=== PATIENT | male | born 1985 | race Caucasian/White ===

== ENCOUNTER 2019-09-17 15:32 | Emergency (ER) | payer SELFPAY ==
[2019-09-17 15:33] VITALS: BP 138/78; PULSE 103; RESP 18; TEMP 36.8; O2SAT 98; BMI 26.4
--- NOTE | 2019-09-17 15:59 | NURSING ---
CALLED FE, NO [facility]QU[facility] AVAILABLE CALLED [facility], NOT ABLE TO TAKE PATIENT CALLED YOVANI BENNETT, ETA IS ABOUT 2030
--- NOTE | 2019-09-17 16:08 | ED.DCSUM_ITS ---
History of Present Illness Chief Complaint: Substance Abuse Informant: Patient, Planning Consultant, - - Police Onset: Today Narrative: Patient is a 34-year-old male with history of heroin and methamphetamine abuse presenting with acute intoxication. Patient states he was at known drug house and drank something. He is not sure what was in it but thinks it might have been meth. He then went to his girlfriend's house and 911 was called because he was acting strangely. Patient was very agitated, hyperactive but also not speaking. Please state he was also profusely sweating. EMS was called and patient was given 5 of IM Haldol as well as 2 of Narcan per the protocol. Joseluis basurto very quickly calm down and was much more cooperative. Patient is now stating that he wants to go home. He admits to using an unknown drug today. He denies any physical complaints. Past Medical History - Allergies and Home Meds Allergies/Adverse Reactions: Allergies No Known Allergies Allergy (Verified 09/01/16 18:59) Primary Care Physician: Care Physician,No Primary [Primary Care Provider] - Past Medical History: - - Illicit drug use Lives: With Family Smoking Status: Current some day smoker Review of Systems All systems negative except as indicated - Patient denies any physical complaints Psych: Reports: - - Illicit drug use Physical Exam Vital Signs/Narrative: Vital Signs Temp Pulse Resp BP Pulse Ox 09/17/19 15:33 98.3 F 103 H 18 138/78 H 98 Inital Vital Signs reviewed: Yes General: Well nourished, Well developed, No Acute Distress Head: Normocephalic, Atraumatic Eyes: Perrl, EOMI ENT: Moist mucous membranes, No rhinorrhea Neck: Supple, Nontender Cardiovascular: Regular rate, Regular rhythm, No murmurs Respiratory: No distress, CTA bilaterally, Chest nontender Abdomen: Soft, Nontender, Nondistended Extremities: Nontender, No edema, - - No obvious deformity or signs of injury Skin: Normal color, No rash, No Trauma Neurological: Alert, Oriented x3, Cranial nerves II-XII grossly intact, Normal Strength, Normal Sensation, - - Focal neurologic deficits Psychological: Normal affect, Agitated, - - Patient pacing around the room but is directable Diagnostic/Tx/Re-eval - Medical Decision Making Patient is evaluated for acute agitation likely associated with illicit drug use. Patient admits to drinking drug earlier today. Patient did receive IM Haldol and Narcan prior to arrival. Patient wants to leave. He is alert and oriented x3 and does appear to have capacity and understanding of his situation. Patient is counseled that he can be discharged home but does need to have a sober ride. Patient's ride arrived and patient leaves with the ride before he can be discharged/exit counseled or the right can be evaluated and the patient condition can be discussed. Patient eloped from the emergency room. Patient does not have any focal neurologic deficits. I do not think head CT or other lab work is indicated at this time. In addition patient is refusing at this time I do think he has the right to refuse. ED Disposition - Plan for ED Patient: Disposition: Home or Assisted Living Diagnosis: Drug abuse Instructions: Drug Abuse Referrals: Care Physician,No Primary [Primary Care Provider] -
--- NOTE | 2019-09-17 16:21 | ED.RN ---
DR MCCANN INFORMED PATIENT NEEDS TO HAVE A SOBER RIDE HOME BEFORE HE CAN LEAVE. PT'S RIDE SHOWED UP AND RN TOLD PATIENT TO WAIT FOR PAPERWORK TO LEAVE. RN TO DR. MCCANN TO INFORM OF PATIENT'S RIDE IS HERE. DR. MCCANN AND RN RETURN TO ROOM AND PATIENT HAS ELOPED. NO IV.
== END 2019-09-17 16:26 | disposition home or self-care (01) ==
LOC: ED 15:54
PROVIDERS: Emergency Provider Emergency Medicine
DX: F15.129 Other stimulant abuse with intoxication, unspecified (principal); F11.129 Opioid abuse with intoxication, unspecified; F17.200 Nicotine dependence, unspecified, uncomplicated
CPT/HCPCS: 99283

== ENCOUNTER 2019-10-19 02:21 | Emergency (ER) | payer SELFPAY ==
[2019-10-19 02:22] VITALS: PULSE 115; RESP 5; O2SAT 78
[2019-10-19 02:23] VITALS: BP 118/58; PULSE 146; RESP 25; TEMP 37.8; O2SAT 92; BMI 22.3
[2019-10-19 02:25] VITALS: PULSE 114; RESP 5; O2SAT 100
--- NOTE | 2019-10-19 02:34 | CT_ITS ---
HISTORY: SUBSTANCE ABUSE WITH HEAD INJURY, LACERATION, FALL EXAMINATION: CT Spine Cervical W/O Contrast Injection TECHNIQUE: Helically acquired images were obtained of the cervical spine. 2D reformatted images were reviewed. A radiation dose optimization technique was used for this scan. IV Contrast dosage and agent: None. COMPARISON: None FINDINGS: The cervical vertebra show normal height and alignment. No fracture or acute osseous abnormality. Intact dens and craniocervical junction. Cervical disc space heights are preserved. C4-5 and C5-6 mild anterior endplate spurring. The posterior elements appear intact. No spondylolisthesis. Neuroforamina are patent. No bony encroachment of the central spinal canal. The paravertebral soft tissues are unremarkable. CT/Spine Cervical without Contras IMPRESSION: 1. No fracture or acute osseous abnormality. Normal cervical vertebral alignment. 2. Minor degenerative change. Individualized dose optimization techniques were used for this CT. at 0330 Reported and signed by: Danial Thompson MD Electronically Signed: Danial Thompson, at 3:29 EST Tel , Service support ,
--- NOTE | 2019-10-19 02:34 | EKG12_ITS ---
Test Reason : Blood Pressure : / mmHG Vent. Rate : 095 BPM Atrial Rate : 095 BPM P-R Int : 154 ms QRS Dur : 102 ms QT Int : 374 ms P-R-T Axes : 065 -23 044 degrees QTc Int : 469 ms Normal sinus rhythm Incomplete right bundle branch block Borderline ECG Confirmed by RODNEY PALOMARES, SKY ([id number]), editor index CRISTINA ALEJANDRE ([id number]) on 10/21/2019 11:06:39 AM Referred By: KATELYN Confirmed By:SKY STEVENS MD
--- NOTE | 2019-10-19 02:34 | CT_ITS ---
HISTORY: SUBSTANCE ABUSE WITH HEAD INJURY, LACERATION, FALL EXAMINATION: CT Head or Brain W/O Contrast Injection TECHNIQUE: Multiple axial images were obtained of the head without intravenous contrast. A radiation dose optimization technique was used for this scan. IV Contrast dosage and agent: None. COMPARISON: None FINDINGS: Normal ventricles and normal sosa-white matter differentiation. No intracranial mass, hemorrhage, or acute parenchymal abnormality. Posterior fossa structures are unremarkable. No suspicious extra-axial fluid collection. The calvarium appears intact. As visualized, the mastoids are clear. 2.3 cm circumscribed retention cyst within the anterior floor of the left maxillary sinus. CT/Brain/Head without Contrast IMPRESSION: 1. Normal CT brain without contrast. 2. Left maxillary sinus 2.3 cm benign retention cyst. Individualized dose optimization techniques were used for this CT. at 0325 Reported and signed by: Danial Thompson MD Electronically Signed: Danial Thompson, at 3:24 EST Tel , Service support ,
--- NOTE | 2019-10-19 02:34 | RAD_ITS ---
HISTORY: UNRESPONSIVESUBSTANCE ABUSE EXAMINATION/TECHNIQUE: XR Chest 1 View: Portable COMPARISON: None FINDINGS: Cardiac telemetry leads in place. Poor inspiration with low lung volumes and bibasilar infiltrates or atelectasis. Normal heart size. No overt vascular congestion. No significant pleural effusion. No pneumothorax. The bony thorax appears intact. RAD/Chest 1 View (Portable) IMPRESSION: Poor inspiration with bibasilar infiltrates or atelectasis. at 0334 Reported and signed by: Danial Thompson MD Electronically Signed: Danial Thompson, at 3:33 EST Tel , Service support ,
--- NOTE | 2019-10-19 02:35 | ED.VIS.GEN ---
History of Present Illness Chief Complaint: Substance Abuse Narrative: Patient is a 34-year-old male who presents with abnormal behavior. He was called by a bystander due to abnormal behavior. The caller 01/01/2001 reported that the patient has been using bath salts. He was combative on the porch for police. He had a laceration to his left scalp. In route for EMS he was intermittently agitated and combative and somnolent. Further history is unable to be obtained due to the patient's acute agitation. Past Medical History - Allergies and Home Meds Allergies/Adverse Reactions: Allergies No Known Allergies Allergy (Verified 09/01/16 18:59) Primary Care Physician: Care Physician,No Primary [Primary Care Provider] - Past Medical History: - - Unable to obtain Smoking Status: Current some day smoker Review of Systems ROS: Unable to Obtain Physical Exam Vital Signs/Narrative: Vital Signs Temp Pulse Resp BP Pulse Ox 10/19/19 02:23 100.1 F H 146 H 25 H 118/58 L 92 Inital Vital Signs reviewed: Yes General: Acute Distress Head: Normocephalic, - - 3 cm left parietal scalp laceration Eyes: Perrl ENT: Moist mucous membranes Neck: Supple Cardiovascular: - - Heart is regular tachycardia without murmur, gallop, rub Respiratory: - - Tachypnea but lungs are clear Abdomen: Soft, Nontender, Nondistended Extremities: Nontender, - - No apparent pain with passive range of motion Skin: Normal color Neurological: - - Agitated answers yes or no to some questions unable to provide any further history Psychological: Agitated Diagnostic/Tx/Re-eval Impressions Brain CT 10/19/19 02:34 IMPRESSION: 1. Normal CT brain without contrast. 2. Left maxillary sinus 2.3 cm benign retention cyst. Individualized dose optimization techniques were used for this CT. at 0325 Reported and signed by: Danial Thompson MD Electronically Signed: Danial Thompson, at 3:24 EST Tel , Service support , Cervical Spine CT 10/19/19 02:34 IMPRESSION: 1. No fracture or acute osseous abnormality. Normal cervical vertebral alignment. 2. Minor degenerative change. Individualized dose optimization techniques were used for this CT. at 0330 Reported and signed by: Danial Thompson MD Electronically Signed: Danial Thompson, at 3:29 EST Tel , Service support , Chest X-Ray 10/19/19 02:34 IMPRESSION: Poor inspiration with bibasilar infiltrates or atelectasis. at 0334 Reported and signed by: Danial Thompson MD Electronically Signed: Danial Thompson, at 3:33 EST Tel , Service support , 10/19/19 02:34 Brain/Head without Contrast [CT] Stat Chest 1 View (Portable) [RAD] Stat Spine Cervical without Contras [CT] Stat Laboratory Results 10/19/19 10/19/19 10/19/19 02:45 02:45 02:45 WBC 7.7 RBC 4.26 L Hgb 12.7 L Hct 38.8 L MCV 91.1 MCH 29.8 MCHC 32.7 RDW Std Deviation 42.5 RDW Coeff of Serafin 12.8 Plt Count 291 MPV 9.1 Immature Gran % (Auto) 0.400 Neut % (Auto) 62.7 Lymph % (Auto) 23.3 [place] % (Auto) 9.2 Eos % (Auto) 3.9 Baso % (Auto) 0.5 Absolute Neuts (auto) 4.8 Absolute Lymphs (auto) 1.79 Nucleated RBC % 0 Sodium 140 Potassium 3.9 Chloride 106 Carbon Dioxide 24.0 Anion Gap 10 BUN 19 H Creatinine 1.19 Estim Creat Clear Calc 91.48 Est GFR (MDRD) Af Amer 91 Est GFR (MDRD) Non-Af 75 BUN/Creatinine Ratio 16.0 Glucose 88 Calcium 8.6 Total Bilirubin 0.40 Direct Bilirubin 0.15 AST 32 ALT 40 Alkaline Phosphatase 118 H Total Creatine Kinase 144 Total Protein 7.5 Albumin 3.7 Globulin 3.8 Urine Opiates Screen Urine Methadone Screen Ur Barbiturates Screen Ur Phencyclidine Scrn Ur Amphetamines Screen U Methamphetamin-MDMA U Benzodiazepines Scrn Urine Cocaine Screen U Cannabinoids Screen Ur Drug Screen Comment Ethyl Alcohol 10/19/19 10/19/19 02:45 02:50 WBC RBC Hgb Hct MCV MCH MCHC RDW Std Deviation RDW Coeff of Serafin Plt Count MPV Immature Gran % (Auto) Neut % (Auto) Lymph % (Auto) [place] % (Auto) Eos % (Auto) Baso % (Auto) Absolute Neuts (auto) Absolute Lymphs (auto) Nucleated RBC % Sodium Potassium Chloride Carbon Dioxide Anion Gap BUN Creatinine Estim Creat Clear Calc Est GFR (MDRD) Af Amer Est GFR (MDRD) Non-Af BUN/Creatinine Ratio Glucose Calcium Total Bilirubin Direct Bilirubin AST ALT Alkaline Phosphatase Total Creatine Kinase Total Protein Albumin Globulin Urine Opiates Screen NEGATIVE Urine Methadone Screen NEGATIVE Ur Barbiturates Screen NEGATIVE Ur Phencyclidine Scrn NEGATIVE Ur Amphetamines Screen POSITIVE H U Methamphetamin-MDMA NEGATIVE U Benzodiazepines Scrn NEGATIVE Urine Cocaine Screen NEGATIVE U Cannabinoids Screen POSITIVE H Ur Drug Screen Comment Ethyl Alcohol 6.0 - Medical Decision Making Patient presented agitated. He responded to his name. When asked if he knew where he was he shook his head and said no. He does not appear to have any focal or lateralizing deficits on exam. Police reported they were told the patient had used bath salts. Patient was given IV Ativan. He did become more somnolent and had an oxygen desaturation and was placed on a nonrebreather. Laceration was anesthetized with 1% lidocaine, cleansed with sterile saline, closed with 3 jamel. Laboratory evaluation as above notable for amphetamines and cannabinoids on drug screen. Patient has been monitored for several hours. On reevaluation he is more alert and able to answer questions appropriately but still requires repeated verbal stimulation answer questions. He does not recall what happened but does admit to bath salt use. He is oriented x3 he is able to provide his name age the month and where he is. However he is still somnolent and I do feel he requires further observation until he can stay awake and ambulate on his own. Patient will be signed out the oncoming physician but once more alert I do believe can be safely discharged home. ED Disposition - Plan for ED Patient: Disposition: Home or Assisted Living Diagnosis: Stimulant abuse Instructions: Drug Abuse Referrals: Care Physician,No Primary [Primary Care Provider] -
[2019-10-19] MEDS: LORazepam 2 MG/ML Syringe IV (02:37)
[2019-10-19 02:54] LABS: Absolute Lymphocyte Count 1.79 X10^3/uL (0.83-4.51); Absolute Neutrophil Count 4.8 X10^3/uL (2.0-7.7); Basophil# 0.04 X10^3/uL; Basophil% 0.5 % (0-1); Eosinophils% 3.9 % (0-5); Hematocrit 38.8 % (40-54); Hemoglobin 12.7 g/dL (13.0-16.5); Lymphocyte # 1.79 X10^3/ul (4.0); Lymphocyte % 23.3 % (19-41); Mean Corp Hgb Conc 32.7 g/dL (32-36); Mean Corpuscular Hgb 29.8 pg (27.0-32.0); Mean Corpuscular Volume 91.1 fL (80-94); Mean Platelet Vol. 9.1 fl (6.2-12.0); Monocyte# 0.71 X10^3/uL; Monocyte% 9.2 % (0-10); NRBC Flagged by Analyzer 0 % (0-5); Neutrophil # 4.82 X10^3/uL (2.7-7.7); Neutrophil % 62.7 % (47-70); Platelet Count 291 K/mm3 (150-450); RBC Distribution Width CV 12.8 % (11.6-14.6); RBC Distribution Width SD 42.5 fl (35.1-43.9); Red Blood Count 4.26 M/mm3 (4.6-6.2); White Blood Count 7.7 K/mm3 (4.4-11.0)
[2019-10-19 03:06] LABS: Amphetamine Urine VISTA POSITIVE (<1000 ng/mL); Barbiturate Urine VISTA NEGATIVE (< 200 ng/mL); Benzodiazepine Urine VISTA NEGATIVE (< 200 ng/mL); Cocaine Urine VISTA NEGATIVE (< 300 ng/mL); Ecstacy Urine VISTA NEGATIVE (< 500 ng/mL); Methadone Urine VISTA NEGATIVE (< 300 ng/mL); PCP Urine VISTA NEGATIVE (< 25 ng/mL); THC Urine VISTA POSITIVE (< 50 ng/mL); Vista UDS pH Range 6
[2019-10-19 03:18] LABS: AST(SGOT) 32 U/L (15-37); Alanine Aminotransfer ALT/SGPT 40 U/L (16-61); Albumin, Serum 3.7 g/dL (3.2-5.0); Alkaline Phosphatase 118 U/L (45-117); Bilirubin, Direct 0.15 mg/dL (0.00-0.30); Globulin 3.8 g/dL (2.2-4.2); Protein, Total 7.5 g/dL (6.4-8.2)
[2019-10-19 03:20] LABS: Anion Gap 10 (5-15); BUN 19 mg/dL (7-18); CPK Total, Creatine Kinase 144 U/L (39-308); Calcium,Total 8.6 mg/dL (8.5-10.1); Chloride 106 mmol/L (98-107); Creatinine, Serum 1.19 mg/dL (0.70-1.30); EST Glomerular Filtration Rate 75 mL/min (>60); Est Glom Filt Rate - Afr Amer 91 mL/min (>60); Estimated Creatinine Clearance 91.48 ml/min; Glucose 88 mg/dL (74-106); Potassium 3.9 mmol/L (3.5-5.1); Sodium Level 140 mmol/L (136-145)
[2019-10-19 05:00] VITALS: BP 108/66; PULSE 108; RESP 15; O2SAT 100
[2019-10-19 07:00] VITALS: BP 106/68; PULSE 102; RESP 15; O2SAT 98
--- NOTE | 2019-10-19 07:09 | ED.RN ---
pt unable to answer health history, allergies, medication list at this time 05:00. pt is responding only to painful stimuli, md aware no further orders at this time, will continue to monitor the pt.
[2019-10-19 07:34] VITALS: BP 145/67; PULSE 81; RESP 16; O2SAT 97
== END 2019-10-19 07:35 | disposition home or self-care (01) ==
PROVIDERS: Emergency Provider Emergency Medicine
DX: F15.10 Other stimulant abuse, uncomplicated (principal); F12.10 Cannabis abuse, uncomplicated; S01.01XA Laceration without foreign body of scalp, initial encounter; F17.200 Nicotine dependence, unspecified, uncomplicated; X58.XXXA Exposure to other specified factors, initial encounter; Y93.89 Activity, other specified; Y92.89 Other specified places as the place of occurrence of the external cause; Y99.8 Other external cause status
CPT/HCPCS: 12002; 70450; 71045; 72125; 80048; 80076; 80307; 80320; 82550; 85025; 93005; 96374; 99285; J7030; P9612; A4216; G0480

== ENCOUNTER 2019-10-19 10:49 | Emergency (ER) | payer SELFPAY ==
[2019-10-19 02:23] VITALS: BMI 22.3
[2019-10-19 10:50] VITALS: BP 134/82; PULSE 112; RESP 18; TEMP 36.8; O2SAT 98; BMI 26.3
--- NOTE | 2019-10-19 11:10 | ED.DCSUM_ITS ---
- ER Visit Summary Date of Service: 10/19/19 Chief Complaint: Overdose History of Present Illness: The patient is a 34 M who presents by EMS along with his significant other for similar symptoms. He was found to be unresponsive and treated with Narcan. His breathing and mentation improved. Currently denying any complaints. Denies any suicidal thoughts. Patient was seen overnight for similar symptoms. He was evaluated and even had a head CT. He was discharged this morning when he was improved. Physical Examination: Tachycardic, but otherwise vitals unremarkable. Patient alert and oriented. Exhibits psychomotor agitation. Grabbing at things. He has abrasions to his arms. Otherwise his exam is unremarkable, no new evidence of trauma. Test Results: None indicated Emergency Department Course and Treatment: Patient is placed on a classroom monitor. I suspect he had an opioid and methamphetamine overdose. Will continue to monitor for rebound symptoms. He does not appear to have any trauma or other findings to suggest another cause to his abnormal behavior. After observation, patient will be discharged. Treatment Plan: As above Disposition: Discharge Impression: 1. Opioid overdose 2. Methamphetamine use This note was generated with [employer] dictation software. It may contain incorrect words, spelling, and punctuation that were not noted in review of the chart prior to signing ED Disposition - Plan for ED Patient: Instructions: OVERDOSE, Opiate Referrals: Aislinn Lestre [NON-STAFF] -
--- NOTE | 2019-10-19 11:12 | ED.DEP ---
ED Disposition - Plan for ED Patient: Instructions: OVERDOSE, Opiate Referrals: Aislinn Lester [NON-STAFF] -
[2019-10-19 11:52] VITALS: BP 128/67; PULSE 98; RESP 18; O2SAT 99
--- NOTE | 2019-10-19 11:52 | ED.RN ---
REVIEWED D/C INSTRUCTIONS, FOLLOW UP CARE, AND S/S THAT WOULD WARRANT A RETURN TO THE ED WITH PT. PT VERBALIZED AN UNDERSTANDING AND DENIES FURTHER QUESTIONS FOR THIS RN. PT SKIN P/W/D, RESP EVEN AND UNLABORED, PT A&O X 3, NO DISTRESS NOTED. PT AMBULATED OUT OF ED, GAIT STEADY.
== END 2019-10-19 11:53 | disposition home or self-care (01) ==
LOC: ED 11:39
PROVIDERS: Emergency Provider Emergency Medicine
DX: T40.2X1A Poisoning by other opioids, accidental (unintentional), initial encounter (principal); F15.90 Other stimulant use, unspecified, uncomplicated; Z72.0 Tobacco use
CPT/HCPCS: 99285

== ENCOUNTER 2020-02-01 19:09 | Emergency (ER) | payer SELFPAY ==
[2020-02-01 19:10] VITALS: BP 147/59; PULSE 93; RESP 20; TEMP 36.8; O2SAT 96; BMI 24.7
--- NOTE | 2020-02-01 20:31 | ED.RN ---
PT REPORTS HE DOES NOT WANT TO WAIT TO BE SEEN. LWBS AT 1925.
--- NOTE | 2020-02-01 20:45 | ED.RN ---
UNABLE TO OBTAIN SECONDARY ASSESSMENT. PT LWBS.
== END 2020-02-01 19:25 | disposition left against medical advice (07) ==
LOC: ED 19:43
PROVIDERS: Emergency Provider Emergency Medicine
DX: Z53.21 Procedure and treatment not carried out due to patient leaving prior to being seen by health care provider (principal)

== ENCOUNTER 2025-04-26 19:50 | Emergency (ER) | payer SELFPAY ==
[2025-04-26 19:51] VITALS: BP 128/89; PULSE 82; RESP 14; TEMP 36.6; O2SAT 100; BMI 26.7
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
[2025-04-26] MEDS: Cephalexin 250 MG Capsule 500 MG PO (21:41)
[2025-04-26 21:43] VITALS: BP 128/74; PULSE 90; RESP 16; TEMP 36.6; O2SAT 99
== END 2025-04-26 21:43 | disposition home or self-care (01) ==
PROVIDERS: Emergency Provider Emergency Medicine; Visit Provider Emergency Medicine
DX: L08.9 Local infection of the skin and subcutaneous tissue, unspecified (principal); Z87.828 Personal history of other (healed) physical injury and trauma
CPT/HCPCS: 99282